=== PATIENT | male | born 1955 | race Caucasian/White ===

== ENCOUNTER 2016-08-20 15:58 | Inpatient (IN) | payer MEDICAID, OTHER ==
[2016-08-20] VITALS (7 sets, daily range): BP systolic 143–207; BP diastolic 72–100; PULSE 74–88; RESP 18–20; TEMP 98–98.3; O2SAT 96–99
[~2016-08-20] VITALS: Ht 182.9 cm; Wt 120.0 kg
--- NOTE | 2016-08-20 16:27 | PD ---
HPI Chief Complaint: Chest Pain Time Seen by Provider: 16:27 Travel History International Travel<30 days: No Contact w/Intl Traveler<30days: No History of Present Illness HPI 61-year-old male presents to the emergency department for evaluation of left- sided chest pain that started at 6 AM this morning. Patient reports a history of cardiac bypass, stent placement in February of last year, asthma, hypertension, and PE. Reports the surgery 2-1/2 weeks ago done in [place] where he lives for a cyst to his back. He states he went to [facility] to sooner now he has an open wound to his back. He went to [facility] who packed the wound. Patient states he is currently on Keflex. He also reports traveling from [place] on Saturday. Patient does report some mild shortness of breath. He denies any wheezing. Patient states the last time he felt this way was when he had the stent placed last year. He reports his last stress test and cardiac catheter was in February of last year when he had the stent placed. Patient is currently on Plavix. He also took a baby aspirin this morning. Patient had 4 sprays of nitroglycerin in the ambulance by EMS. Patient states nitroglycerin slightly relieved his chest pain, but is currently rating it 9 out of 10. PFSH Past Medical History Asthma: Yes Autoimmune Disease: No Anxiety: Yes Depression: Yes COPD: No Hypertension: Yes Myocardial Infarction: Yes Social History Alcohol Use: No Tobacco Use: Yes Substance Use: No Allergies-Medications (Allergen,Severity, Reaction): Coded Allergies: Zolpidem (Verified Allergy, Severe, 04/27/03) Ambien (Verified Allergy, Unknown, 05/17/03) Uncoded Allergies: AMBIEN (Allergy, Unknown, 04/27/03) N (Allergy, Unknown, 04/27/03) Reported Meds & Prescriptions Reported Meds & Active Scripts Active Reported Fish Oil ([place]-3 Fatty Acids) 1,000 Mg Cap 1,000 Mg PO DAILY Lisinopril 20 Mg Tab 20 Mg PO DAILY Lipitor (Atorvastatin Calcium) 40 Mg Tab 40 Mg PO HS Norvasc (Amlodipine Besylate) 10 Mg Tab 20 Mg PO DAILY Plavix (Clopidogrel Bisulfate) 75 Mg Tab 75 Mg PO DAILY Toprol XL (Metoprolol Succinate) 100 Mg Tab 100 Mg PO DAILY Klonopin (Clonazepam) 1 Mg Tab 1 Mg PO TID Review of Systems Except as stated in HPI: all other systems reviewed are Neg Physical Exam Narrative GENERAL: Well-developed well-nourished male patient, ambulatory. Afebrile. SKIN: Warm and dry. Patient has a wound to the upper mid back that measures 7 cm x 4 cm. There is very mild erythema around the edges, but no evidence of acute infection. No purulent drainage. HEAD: Normocephalic. Atraumatic. EYES: No scleral icterus. No injection or drainage. NECK: Supple, trachea midline. No JVD or lymphadenopathy. CARDIOVASCULAR: Regular rate and rhythm without murmurs, gallops, or rubs. RESPIRATORY: Breath sounds equal bilaterally. No accessory muscle use. Lungs sounds with slight expiratory wheezes noted throughout. GASTROINTESTINAL: Abdomen soft, non-tender, nondistended. MUSCULOSKELETAL: No cyanosis, or edema. BACK: Nontender without obvious deformity. No CVA tenderness. Data Data Last Documented VS Vital Signs Date Time Temp Pulse Resp B/P Pulse Ox O2 Delivery O2 Flow Rate FiO2 08/20/16 18:59 86 18 98 Room Air 08/20/16 17:15 143/76 08/20/16 16:25 98.3 Orders Electrocardiogram (08/20/16 16:26) Basic Metabolic Panel (Bmp) (08/20/16 16:26) Ckmb (Isoenzyme) Profile (08/20/16 16:26) Complete Blood Count With Diff (08/20/16 16:26) D-Dimer (08/20/16 16:26) Magnesium (Mg) (08/20/16 16:26) Prothrombin Time / Inr (Pt) (08/20/16 16:26) Act Partial Throm Time (Ptt) (08/20/16 16:26) Troponin I (08/20/16 16:26) Chest, Single Ap (08/20/16 16:26) Ecg Monitoring (08/20/16 16:26) Bilateral Bp Monitoring (08/20/16 16:26) Iv Access Insert/Monitor (08/20/16 16:26) Oximetry (08/20/16 16:26) Oxygen Administration (08/20/16 16:26) Sodium Chloride 0.9% Flush (Ns Flush) (08/20/16 16:30) Albuterol-Ipratropium Neb (Duoneb Neb) (08/20/16 16:30) Morphine Inj (Morphine Inj) (08/20/16 17:00) Ondansetron Inj (Zofran Inj) (08/20/16 17:00) Nitroglycerin 2% Oint (Nitroglycerin 2% (08/20/16 17:00) Labs Laboratory Tests Test 08/20/16 08/20/16 16:30 18:00 White Blood Count 7.2 TH/MM3 Red Blood Count 4.19 MIL/MM3 Hemoglobin 12.9 GM/DL Hematocrit 37.8 % Mean Corpuscular Volume 90.1 FL Mean Corpuscular Hemoglobin 30.8 PG Mean Corpuscular Hemoglobin 34.2 % Concent Red Cell Distribution Width 14.3 % Platelet Count 122 TH/MM3 Mean Platelet Volume 9.7 FL Neutrophils (%) (Auto) 59.8 % Lymphocytes (%) (Auto) 25.8 % Monocytes (%) (Auto) 10.0 % Eosinophils (%) (Auto) 3.7 % Basophils (%) (Auto) 0.7 % Neutrophils # (Auto) 4.3 TH/MM3 Lymphocytes # (Auto) 1.9 TH/MM3 Monocytes # (Auto) 0.7 TH/MM3 Eosinophils # (Auto) 0.3 TH/MM3 Basophils # (Auto) 0.1 TH/MM3 CBC Comment DIFF FINAL Differential Comment Sodium Level 142 MEQ/L Potassium Level 4.0 MEQ/L Chloride Level 112 MEQ/L Carbon Dioxide Level 24.5 MEQ/L Anion Gap 6 MEQ/L Blood Urea Nitrogen 28 MG/DL Creatinine 2.03 MG/DL Estimat Glomerular Filtration 34 ML/MIN Rate Random Glucose 102 MG/DL Calcium Level 8.7 MG/DL Magnesium Level 2.1 MG/DL Total Creatine Kinase 55 U/L Troponin I LESS THAN 0.02 NG/ML Prothrombin Time 10.7 SEC Prothromb Time International 1.0 RATIO Ratio Activated Partial 28.0 SEC Thromboplast Time D-Dimer Quantitative (PE/DVT) 0.35 MG/L FEU [facility] Medical Decision Making Medical Screen Exam Complete: Yes Emergency Medical Condition: Yes Medical Record Reviewed: Yes Interpretation(s) chest x-ray - CONCLUSION: No evidence of acute cardiac pulmonary disease. Differential Diagnosis STEMI versus NSTEMI versus PE versus pneumonia versus COPD exacerbation versus pneumothorax Narrative Course 61-year-old male presents to the emergency department for evaluation of chest pain that started at 6 AM this morning. Patient has a significant cardiac history as well as a history of PE. Patient has risk factors of recent travel and recent surgery as well. EKG, CBC, BMP, CK, troponin, magnesium, PTT, PT/INR , d-dimer are ordered and pending. Chest x-ray is ordered and pending. EKG shows sinus rhythm, heart rate 75, no acute ST changes. CBC shows no acute abnormalities. BMP shows elevated BUN and creatinine 28/2.03. CK is 55. Troponin less than 0.02. Magnesium is 2.1. Coags show no acute abnormalities. D-dimer is 0.35. Chest x-ray shows no evidence of acute cardiac pulmonary disease. The patient's daughter did call and spoke to the nurse who was taking care of the patient. She states the patient has a warrant out for his arrest for stealing from him. She state that he is also addicted to pain medication and will go to hospital complaining of chest pain in hopes to obtain pain medication. The [facility]'s Office would like to be called when he is discharged. Patient will be admitted to the chest pain center to rule out ACS. Patient continues to ask for pain medication. I instructed him that I would not be able to give him any further narcotics at this time. Diagnosis Primary Impression: Chest pain Qualified Code: R07.9 - Chest pain, unspecified type Admitting Information Admitting Physician Requests: Tatiana Parnell Aug 20, 2016 16:27
[2016-08-20] MEDS ORDERED: RESP: ALBUTEROL 2.5 MG/IPRATROPIUM 0.5 MG NEB (SCH) INH ONE (16:30)
[2016-08-20] MEDS ORDERED: SODIUM CHLORIDE 0.9% FLUSH 5 ML FLUSH IVF PRN ×2 (16:30→19:15)
[2016-08-20] MEDS ORDERED: MORPHINE SULFATE 4 MG/ML INJ IV PUSH ONE (17:00)
[2016-08-20] MEDS ORDERED: ONDANSETRON HCL 4 MG/2 ML VIAL IV PUSH ONE (17:00)
[2016-08-20] MEDS ORDERED: NITROGLYCERIN 2% OINT 1 GM PACKET TOPICAL ONE (17:00)
--- NOTE | 2016-08-20 17:00 | RADRPT ---
EXAM DATE/TIME: 08/20/2016 16:36 [facility] COMPARISON: No previous studies available for comparison. INDICATIONS : Chest pain MEDICAL HISTORY : Hypertension. SURGICAL HISTORY : CABG. Cyst removed from upper back 2 weeks ago bandage still on ENCOUNTER: Initial ACUITY: 1 day PAIN SCORE: 8/10 LOCATION: Bilateral chest FINDINGS: No infiltrate, effusion or pneumothorax demonstrated. Heart size within normal limits. Patient has had previous median sternotomy and CABG. CONCLUSION: No evidence of acute cardiac pulmonary disease. Antonino Sánchez MD on August 20, 2016 at 16:58 Board Certified Radiologist. This report was verified electronically.
[2016-08-20 17:19] LABS: AUTOMATED NEUTROPHIL # 4.3 TH/MM3 (1.8-7.7); BASOPHIL # 0.1 TH/MM3 (0-0.2); BASOPHIL % 0.7 % (0.0-2.0); EOSINOPHIL # 0.3 TH/MM3 (0-0.4); EOSINOPHIL % 3.7 % (0.0-4.0); HEMATOCRIT 37.8 % (39.0-51.0); HEMO FLAGS DIFF FINAL; LYMPH % 25.8 % (9.0-44.0); LYMPHOCYTE # 1.9 TH/MM3 (1.0-4.8); MEAN CELL VOLUME 90.1 FL (80.0-100.0); MEAN CORPUSCULAR HEMOGLOBIN 30.8 PG (27.0-34.0); MEAN CORPUSCULAR HGB CONC 34.2 % (32.0-36.0); NEUT % 59.8 % (16.0-70.0); PLATELET COUNT 122 TH/MM3 (150-450); RED BLOOD COUNT 4.19 MIL/MM3 (4.50-5.90); RED CELL DISTRIBUTION WIDTH 14.3 % (11.6-17.2); WHITE BLOOD COUNT 7.2 TH/MM3 (4.0-11.0)
[2016-08-20 17:32] LABS: ANION GAP 6 MEQ/L (5-15); BICARBONATE 24.5 MEQ/L (21.0-32.0); BLOOD UREA NITROGEN 28 MG/DL (7-18); CHLORIDE 112 MEQ/L (98-107); GLOMERULAR FILTRATION RATE 34 ML/MIN (>89); MAGNESIUM 2.1 MG/DL (1.5-2.5); SODIUM (NA) 142 MEQ/L (136-145)
[2016-08-20 18:13] LABS: CREATINE KINASE 55 U/L (39-308)
[2016-08-20] MEDS ORDERED: FISH1000 PO (18:46)
[2016-08-20] MEDS ORDERED: TOPR100T PO (18:46)
[2016-08-20] MEDS ORDERED: LISI-515 PO (18:46)
[2016-08-20] MEDS ORDERED: AMLO10 PO (18:46)
[2016-08-20] MEDS ORDERED: CLON1 PO (18:46)
[2016-08-20] MEDS ORDERED: PLAV75TA29 PO (18:46)
[2016-08-20] MEDS ORDERED: LIPI40TA PO (18:46)
[2016-08-20 18:56] LABS: PROTHROMBIN TIME - PATIENT 10.7 SEC (9.8-11.6)
--- NOTE | 2016-08-20 19:30 | PD ---
Data Data Last Documented VS Vital Signs Date Time Temp Pulse Resp B/P Pulse Ox O2 Delivery O2 Flow Rate FiO2 08/20/16 18:59 86 18 98 Room Air 08/20/16 17:15 143/76 08/20/16 16:25 98.3 Orders Electrocardiogram (08/20/16 16:26) Basic Metabolic Panel (Bmp) (08/20/16 16:26) Ckmb (Isoenzyme) Profile (08/20/16 16:26) Complete Blood Count With Diff (08/20/16 16:26) D-Dimer (08/20/16 16:26) Magnesium (Mg) (08/20/16 16:26) Prothrombin Time / Inr (Pt) (08/20/16 16:26) Act Partial Throm Time (Ptt) (08/20/16 16:26) Troponin I (08/20/16 16:26) Chest, Single Ap (08/20/16 16:26) Ecg Monitoring (08/20/16 16:26) Bilateral Bp Monitoring (08/20/16 16:26) Iv Access Insert/Monitor (08/20/16 16:26) Oximetry (08/20/16 16:26) Oxygen Administration (08/20/16 16:26) Sodium Chloride 0.9% Flush (Ns Flush) (08/20/16 16:30) Albuterol-Ipratropium Neb (Duoneb Neb) (08/20/16 16:30) Morphine Inj (Morphine Inj) (08/20/16 17:00) Ondansetron Inj (Zofran Inj) (08/20/16 17:00) Nitroglycerin 2% Oint (Nitroglycerin 2% (08/20/16 17:00) Admit Order (Ed Use Only) (08/20/16 19:10) Labs Laboratory Tests Test 08/20/16 08/20/16 16:30 18:00 White Blood Count 7.2 TH/MM3 Red Blood Count 4.19 MIL/MM3 Hemoglobin 12.9 GM/DL Hematocrit 37.8 % Mean Corpuscular Volume 90.1 FL Mean Corpuscular Hemoglobin 30.8 PG Mean Corpuscular Hemoglobin 34.2 % Concent Red Cell Distribution Width 14.3 % Platelet Count 122 TH/MM3 Mean Platelet Volume 9.7 FL Neutrophils (%) (Auto) 59.8 % Lymphocytes (%) (Auto) 25.8 % Monocytes (%) (Auto) 10.0 % Eosinophils (%) (Auto) 3.7 % Basophils (%) (Auto) 0.7 % Neutrophils # (Auto) 4.3 TH/MM3 Lymphocytes # (Auto) 1.9 TH/MM3 Monocytes # (Auto) 0.7 TH/MM3 Eosinophils # (Auto) 0.3 TH/MM3 Basophils # (Auto) 0.1 TH/MM3 CBC Comment DIFF FINAL Differential Comment Sodium Level 142 MEQ/L Potassium Level 4.0 MEQ/L Chloride Level 112 MEQ/L Carbon Dioxide Level 24.5 MEQ/L Anion Gap 6 MEQ/L Blood Urea Nitrogen 28 MG/DL Creatinine 2.03 MG/DL Estimat Glomerular Filtration 34 ML/MIN Rate Random Glucose 102 MG/DL Calcium Level 8.7 MG/DL Magnesium Level 2.1 MG/DL Total Creatine Kinase 55 U/L Troponin I LESS THAN 0.02 NG/ML Prothrombin Time 10.7 SEC Prothromb Time International 1.0 RATIO Ratio Activated Partial 28.0 SEC Thromboplast Time D-Dimer Quantitative (PE/DVT) 0.35 MG/L FEU [facility] Supervised Visit with JOSE: Yes Narrative Course The history, exam, and medical decision-making in the associated mid-level provider note were completed with my assistance. I reviewed and agree with the findings presented. I attest that I had a [id number] encounter with the patient on the same day, and personally performed and documented my assessment and findings in the medical record. *My assessment and Findings: 7-year-old man, history of CAD, presents with chest pain. He states feels similar to her previous CAD. There is a little bit of mixed message here, his daughter called and states that he has a warrant for stealing from her and is a drug seeker comes emergent department complaining of chest pain when he gets out of medication. He also has some wounds to his back that are apparently are from back surgery that he never followed up for, had the sutures removed at another ED, and then saw another ED and has impacted. There is no infection at the base looks a little bit necrotic. Given his history, would recommend admission to chest pain Center, serial cardiac enzymes, no opiates. Diagnosis Primary Impression: Chest pain Qualified Code: R07.9 - Chest pain, unspecified type Fredrick Hoyt MD Aug 20, 2016 19:30
[2016-08-20 20:37] LABS: CREATINE KINASE 48 U/L (39-308)
[2016-08-20] MEDS: SODIUM CHLORIDE 0.9% FLUSH 5 ML FLUSH IVF SCH (21:00)
[2016-08-20 22:57] LABS: CREATINE KINASE 44 U/L (39-308)
[2016-08-20] MEDS: NITROGLYCERIN 2% OINT 1 GM PACKET TOP SCH (23:55)
[2016-08-21] VITALS (9 sets, daily range): BP systolic 135–165; BP diastolic 64–94; PULSE 64–81; RESP 18–20; TEMP 97.4–98.2; O2SAT 93–99
[2016-08-21] MEDS: NITROGLYCERIN 2% OINT 1 GM PACKET TOP SCH ×3 (06:05→17:14)
[2016-08-21] MEDS: SODIUM CHLORIDE 0.9% FLUSH 5 ML FLUSH IVF SCH ×2 (06:05→21:00)
[2016-08-21] MEDS ORDERED: LISINOPRIL 20 MG TAB PO SCH (09:00)
--- NOTE | 2016-08-21 09:06 | EKG ---
Date Performed: 08/20/2016 Time Performed: 22:40:32 PTAGE: 61 years EKG: Sinus rhythm WITH FREQUENT VENTRICULAR PREMATURE COMPLEXES LOW QRS VOLTAGE IN PRECORDIAL LEADS ABNORMAL RHYTHM EC G Since PREVIOUS TRACING , now with PVC's PREVIOUS TRACIN08/20/2016 19.41 DOCTOR: Janice Cowan Interpretating Date/Time 08/21/2016 09:06:01
--- NOTE | 2016-08-21 09:08 | EKG ---
Date Performed: 08/20/2016 Time Performed: 19:41:09 PTAGE: 61 years EKG: Sinus rhythm LOW QRS VOLTAGE IN PRECORDIAL LEADS INCOMPLETE RIGHT BUNDLE BRANCH BLOCK INFERIOR MYOCARDIAL INFARCT ION ANTEROSEPTAL MYOCARDIAL INFARCTION ABNORMAL ECG Since PREVIOUS TRACING , no significant change noted PREVIOUS TRACIN08/20/2016 16.05 DOCTOR: Janice Cowan Interpretating Date/Time 08/21/2016 09:06:57
--- NOTE | 2016-08-21 09:09 | EKG ---
Date Performed: 08/20/2016 Time Performed: 16:05:42 PTAGE: 61 years EKG: Sinus rhythm INCOMPLETE RIGHT BUNDLE BRANCH BLOCK PROBABLE INFERIOR MYOCARDIAL INFARCTION ABNORMAL ECG Since PREVIOUS TRACING , no significant change noted PREVIOUS TRACIN05/18/2003 07.25 DOCTOR: Janice Cowan Interpretating Date/Time 08/21/2016 09:07:52
[2016-08-21] MEDS ORDERED: REGADENOSON INJ 0.4 MG/5 ML SYR ONE (10:00)
[2016-08-21] MEDS: CLOPIDOGREL 75 MG TAB PO SCH (11:02)
[2016-08-21] MEDS: ACETAMINOPHEN/HYDROcodone 325 MG/7.5 MG TAB PO PRN ×2 (11:02→17:00)
[2016-08-21] MEDS: METOPROLOL SUCCINATE 50 MG EXTENDED RELEASE TAB PO SCH (11:02)
[2016-08-21] MEDS: clonazePAM 1 MG TAB PO SCH ×3 (11:02→17:00)
--- NOTE | 2016-08-21 11:06 | MH ---
cc: MIRTHA HALEY MD DATE OF ADMISSION: 08/20/2016 DATE OF 1955 CHIEF COMPLAINT Back wound and chest pain. HISTORY OF PRESENT ILLNESS This is 61-year-old male with history of CAD with a bypass history as well as multiple stents to his LAD who presents with his primary complaint of pain in his back after having a sebaceous cyst removed from his back over 2-1/2 weeks ago in [place]. He states he had sutures removed in [place] several days ago and the wound opened up. He went to a different hospital a couple days ago and had packing put in. He presented to the ED yesterday afternoon for a lot of drainage from the site. He states he is soaking the dressing. He states it has been foul-smelling. It has been bloody, brown, green and yellow drainage from the wound. He also complains of chest discomfort. He states he had an episode yesterday morning around 8 o'clock in the morning that he describes as an elephant sitting on his chest and is still there. It got a little worse when he was at the [facility] yesterday with his son. It is on the left side of his chest. He states that it feels similar to when he had stenting and bypass in the past. He had no shortness breath, nausea, diaphoresis with his symptoms. He states that he has placed on Keflex for the wound at one of the ER visits. He states he has not taken it. He states he is compliant with his cardiac medications. PAST MEDICAL HISTORY 1. CAD with history of CABG and multiple stenting. 2. Dehiscence of excisional site of his back. 3. Hypertension. 4. Hyperlipidemia. 5. Carotid artery stenosis with a right enterectomy. 6. CVA. FAMILY HISTORY Positive for CAD. SOCIAL HISTORY The patient quit smoking about 5 years ago but prior to that he smokes about 1/2-pack of cigarettes for 40 years. He denies alcohol or illicit drugs. SURGICAL HISTORY 1. He has had multiple heart catheterizations and he states he had a total of 10 stents. His last stenting was in February of 2016. 2. He also had CABG. 3. He states he had a sebaceous cyst excised 2-1/2 weeks ago in [place]. It has since dehisced. ALLERGIES AMBIEN. CURRENT MEDICATIONS 1. Keflex. 2. Lisinopril. 3. Klonopin. 4. Metoprolol succinate. 5. Atorvastatin. 6. Plavix. 7. [place] 3 fatty acids. 8. He also is on amlodipine 20 mg daily which is above the maximum dose of 10 mg. REVIEW OF SYSTEMS General: Denies fever or chills. Denies recent illness. HEENT: Denies headache, earache, sore throat difficulty swallowing. Cardiovascular: Describes the discomfort as mentioned above. Denies diaphoresis. Denies sensation of heart beating rapidly or irregularly. No syncope. Respiratory: Denies shortness of breath or inspirational chest discomfort. Denies coughing, wheezing or hemoptysis. GI: Denies nausea, vomiting, diarrhea, abdominal pain or blood in the stool. Musculoskeletal: Denies joint pain or edema. Denies calf pain or edema. He does complain of back pain where the wound has dehisced. Neurovascular: Denies headache or dizziness. Endocrine: Denies polyuria or polydipsia. Hematologic: Denies bruising. Skin: Denies rash or itching. He does complain of the two wounds on his back from prior excision of the sebaceous cyst. PHYSICAL EXAMINATION Vital Signs: In emergency department initially included a blood pressure of 207/175, respiratory rate 18, pulse oximetry 96% on room air and he was afebrile. Most recent vital signs include a blood pressure of 165/89, heart rate 70, respiration 20, pulse oximetry 98%on room air and he is afebrile. General: The patient is seen in the examination room in no apparent stress. He is very pleasant. He speaks in clear and complete sentences. Please note also that a transit authority police officer is also at the bedside as the patient is in custody. HEENT: Head is atraumatic, normocephalic. Neck: Supple without lymphadenopathy. Trachea is midline. No JVD. There is a right carotid bruit. Cardiovascular: Regular rate and rhythm, without murmur, rub or gallop. Respiratory: Lungs clear to auscultation bilaterally. No wheezing, rales or rhonchi. No reproducible chest wall discomfort. No use of accessory muscles. GI: Abdomen is nontender, nondistended. Bowel sounds are normal. No guarding or rebound. No obvious pulsatile mass or bruit. No CVA tenderness. Good strong femoral pulses bilaterally. Musculoskeletal: Patient moving upper and lower extremities freely. No joint tenderness or edema. No calf tenderness or edema. No Homans' sign. Strong pulses in upper and lower extremities. Neurovascular: Patient alert and oriented. Cranial nerves II through XII grossly intact. There are no focal deficits and speech is clear. Skin: No rashes. Turgor is normal. There are two wounds to his back. One is transverse to his back and really did not show any signs of cellulitis. Then he has a more midline and vertical wound that has dehisced, approximately 7-8 cm high x 3-4 cm across. The wound does open and muscle is expose. There is erythema on the margins of the wound. There also appears to some necrosis on the inner aspect of the open wound. There is a lot of serosanguineous drainage on the dressing. LABORATORY DATA CBC is essentially remarkable. Coagulation studies unremarkable including a D-dimer that is normal at 0.35. Basic metabolic panel has a creatinine elevated at 2.03, GFR is decreased at 34, BUN elevated at 20. Serial cardiac enzymes normal x 3. SINGLE VIEW CHEST X-RAY Read by radiologist as no evidence of acute cardiopulmonary disease. There is evidence of prior sternotomy. EKGs Sinus rhythm without significant ST segment depression or elevation. ASSESSMENT 1. Chest pain: The patient has history of CAD, has had CABG and multiple stents. He has had serial cardiac enzymes and EKGs for ruling out purposes. He has been seen by Dr. Haley of Cardiology in the Chest [facility] Center and we will get a Lexiscan. If it is unremarkable, we will be signing off at that time. If abnormal, the patient will need a consultation to section leader and machine setter mold cutting machine operator. 2. History of CAD: The patient will have this reassessed with stress testing. He has ruled out with serial cardiac enzymes and EKGs. 3. Renal insufficiency: The patient denies having history of this. The patient will be given IV hydration and will repeat basic metabolic panel in the morning. 4. Cellulitis: The patient's wound has dehiscence. It is draining. The patient will need admission for this. I have spoken with Dr. Green who has graciously agreed to accept the patient. We will defer antibiotic choice to Dr. Green and his physician, Pankaj Calle. 5. Hypertension: We will decrease his amlodipine to 10 mg. He will otherwise resume his medications. 6. Hyperlipidemia: Continue current medication. The patient is stable at this time. He is agreeable to this plan. Dictated by: Jamir Pryor PA-C Breann Rojas/JENIFFER /10:12 AM /11:06 AM
--- NOTE | 2016-08-21 11:14 | RADRPT ---
EXAM DATE/TIME: 08/21/2016 09:29 [facility] COMPARISON: No previous studies available for comparison. INDICATIONS : Left sided chest pain for 1 day. CABG, cardiac stents placed, asthma and cardiac cath. Angina. Myoca rdial infarction. DOSE: 26.4 mCi Tc99m Myoview at stress. 8.5 mCi Tc99m Myoview at rest. 0.4 mg Lexiscan STRESS SYMPTOMS: Dyspnea. EJECTION FRACTION: 53% MEDICAL HISTORY : Hypertension. SURGICAL HISTORY : Coronary artery stent. CABG ENCOUNTER: Initial ACUITY: 1 day PAIN SCALE: 2/10 LOCATION: Left chest TECHNIQUE: The patient underwent pharmacologic stress with infusion of prescribed dose. Continuous ECG tracing was monitored during stress. Gated SPECT imaging was performed after stress and conventional SPECT i maging was performed at rest. The examination was performed on a SPECT/CT scanner, both attenuation and non-corrected datasets were reviewed. FINDINGS: DISTRIBUTION: The maximum perfused segment at stress is in the anterior wall. PERFUSION STUDY: There is moderately diminished relative perfusion involving inferior wall and cardiac apex without de finite evidence of redistribution GATED STUDY: There is intact wall motion and thickening without hypokinetic or dyskinetic segments. CONCLUSION: Small sized moderate severity inferior and apical perfusion abnormality without evidence of redistrib ution. RISK CATEGORY: Low (<1% Annual Mortality Rate) Antonino Guerra MD on August 21, 2016 at 11:09 Board Certified Radiologist. This report was verified electronically.
[2016-08-21] MEDS ORDERED: cloNIDine HCL 0.1 MG TAB PO PRN (12:00)
--- NOTE | 2016-08-21 12:15 | HHI.PR ---
Subjective Remarks The patient was admitted to [facility] for chest pain, stress test performed, nonischemic, cardiology has signed off. The patient's care was transferred to the hospitalist service because he has a large wound on his back after a sebaceous cyst was removed. The patient had sebaceous cyst removed from his back a few weeks ago by general surgeon in [place]. He states that he moved down from [place] to be closer to his daughter, and has no plans to return as of yet. He states that a few days ago and the wound opened up, went to an ED where packing was placed and he was given Keflex. He denies any fevers or chills. Of note his creatinine was noted to be elevated, denies any prior history of renal disease to his knowledge. He's been tolerating diet and would like to eat now after his stress test. He denies any nausea, vomiting, or diarrhea. Objective Vitals Vital Signs Date Time Temp Pulse Resp B/P Pulse Ox O2 Delivery O2 Flow Rate FiO2 08/21/16 10:57 95 21 08/21/16 08:33 97.8 78 20 165/89 95 08/21/16 03:46 98.0 81 20 144/65 95 08/21/16 00:12 97.6 80 20 147/94 99 08/20/16 23:30 75 08/20/16 21:05 98.0 80 20 144/72 99 08/20/16 20:00 97 08/20/16 18:59 86 18 98 Room Air 08/20/16 17:15 88 18 143/76 96 Room Air 08/20/16 16:40 74 207/100 194/87 08/20/16 16:29 18 97 Room Air 08/20/16 16:29 73 18 96 Room Air 08/20/16 16:29 96 Room Air 08/20/16 16:29 75 18 207/100 96 Room Air 08/20/16 16:25 98.3 75 18 207/100 96 I/O 08/20/16 08/20/16 08/20/16 08/21/16 08/21/16 08/21/16 06:59 14:59 22:59 06:59 14:59 22:59 Output Total 1000 ml Balance -1000 ml Output Urine Total 1000 ml Result Diagram: 08/20/16 1630 08/20/16 1630 Imaging Last Impressions Chest X-Ray 08/20/16 1626 Signed Impressions: Service Date/Time: Saturday, August 20, 2016 16:36 - CONCLUSION: No evidence of acute cardiac pulmonary disease. Antonino Sánchez MD Objective Remarks GENERAL: Well-developed well-nourished. In no acute distress. SKIN: Warm and dry. Mid back with ~4cm open wound with exposed muscle; no surrounding erythema or drainage noted. HEENT: Normocephalic. Pupils equal and round. Mucous membranes pink and moist. CARDIOVASCULAR: Regular rate and rhythm. No murmur appreciated. RESPIRATORY: No accessory muscle use. Clear to auscultation. Breath sounds equal bilaterally. GASTROINTESTINAL: Abdomen soft, non-tender, nondistended. Bowel sounds x4. MUSCULOSKELETAL: No obvious deformities. No clubbing or cyanosis. No edema. NEUROLOGICAL: Awake and alert. No focal neurological deficits. Moves upper and lower extremities spontaneously. Normal speech. PSYCHIATRIC: Appropriate mood and affect; insight and judgment normal. A/P Problem List: (1) Chest pain ICD Code: R07.9 Status: Acute (2) Open back wound ICD Code: S21.209A Status: Acute Assessment and Plan 61-year-old male with past medical history of CAD, HTN, HLD, CVA, and recent sebaceous cyst removal who presented to the ED for chest pain Chest pain with history of CAD: Evaluated by cardiology and the chest pain center and stress test was performed which showed no acute ischemia. Discussed with [facility], cleared from cardiology perspective. Continue Plavix, statin, beta rojas. Back wound dehiscence s/p recent sebaceous cyst removal: Afebrile with no leukocytosis. Does not appear to be acutely infected at this time. Possible area of necrosis in the wound. Consult wound care physician for recommendations , may need debridement and/or wound VAC. [place] as needed for now for pain. Acute kidney injury: Unclear etiology, unknown baseline. Creatinine 2.03, previously 1.1 on 05/18/03. Start IVF and follow-up BMP. Hypertension: Hold lisinopril for now with JULIO. Amlodipine started in [facility]. Clonidine as needed. DVT prophylaxis: SCDs Discharge Planning Disposition pending clinical course. Currently with law-enforcement bedside as the patient is with a warrant, and will go to intermediate at [place]. Problem Qualifiers (1) Chest pain: Qualified Code: R07.9 - Chest pain, unspecified type (2) Open back wound: Qualified Code: S21.209A - Open back wound, unspecified laterality, initial encounter Pankaj Calle Aug 21, 2016 12:14
[2016-08-21] MEDS: SODIUM CHLOR 0.9% 1000 ML INJ 1,000 ML IV SCH ×2 (12:31→23:20)
--- NOTE | 2016-08-21 17:01 | TR ---
Date Performed: 08/21/2016 Time Performed: 10:01:37 DOCTOR: Janice Cowan DRUG LIST: CLINICAL HISTORY: ANGINA REASON FOR TEST: Angina REASON FOR ENDING: OBSERVATION: CONCLUSION: Lexiscan stress test was performed under standard four minute protocol. Radionuclid e was injected one minute prior to ending the test. No electrocardiographic abormalities were present to suggest ischemia. Nuclear imaging and interpretation are pending. COMMENTS:
[2016-08-21] MEDS ORDERED: KETOROLAC TROMETHAMINE 30 MG/ML (IVP) VIAL IV PUSH PRN (17:15)
[2016-08-21] MEDS ORDERED: ONDANSETRON HCL 4 MG/2 ML VIAL IV PRN (21:15)
[2016-08-21] MEDS ORDERED: DOCUSATE SODIUM 100 MG CAP PO PRN (21:15)
[2016-08-21] MEDS ORDERED: DOCUSATE SODIUM 50 MG/SENNA 8.6 MG TAB PO PRN (21:15)
[2016-08-21] MEDS ORDERED: ACETAMINOPHEN 325 MG TAB PO PRN (21:15)
[2016-08-21] MEDS ORDERED: CALCIUM CARBONATE 500 MG CHEWABLE TAB CHEW PRN (21:15)
[2016-08-21] MEDS: ATORVASTATIN 40 MG TAB PO SCH (22:10)
[2016-08-22] VITALS (8 sets, daily range): BP systolic 132–167; BP diastolic 67–89; PULSE 55–72; RESP 20; TEMP 96.2–98.3; O2SAT 94–96
[2016-08-22 02:15] LABS: BLOOD, URINE NEG (NEG); COMMENT (UR) CULT NOT INDICATED; CULTURE IF INDICATED CULT NOT INDICATED; GLUCOSE,URINE NEG (NEG); KETONE, URINE NEG (NEG); MUCUS URINE FEW /lpf (OCC); NITRITE,URINE NEG (NEG); URINE COLOR YELLOW (YELLW/STRAW)
[2016-08-22] MEDS: NITROGLYCERIN 2% OINT 1 GM PACKET TOP SCH ×4 (06:00→18:00)
[2016-08-22 07:05] LABS: AUTOMATED NEUTROPHIL # 5.2 TH/MM3 (1.8-7.7); BASOPHIL % 0.4 % (0.0-2.0); EOSINOPHIL # 0.2 TH/MM3 (0-0.4); EOSINOPHIL % 2.6 % (0.0-4.0); HEMATOCRIT 38.8 % (39.0-51.0); HEMO FLAGS DIFF FINAL; LYMPH % 16.2 % (9.0-44.0); LYMPHOCYTE # 1.2 TH/MM3 (1.0-4.8); MEAN CORPUSCULAR HGB CONC 34.1 % (32.0-36.0); MONO % 8.6 % (0.0-8.0); NEUT % 72.2 % (16.0-70.0); PLATELET COUNT 119 TH/MM3 (150-450); RED BLOOD COUNT 4.27 MIL/MM3 (4.50-5.90); RED CELL DISTRIBUTION WIDTH 14.2 % (11.6-17.2); WHITE BLOOD COUNT 7.2 TH/MM3 (4.0-11.0)
[2016-08-22 07:12] LABS: BICARBONATE 24.6 MEQ/L (21.0-32.0); POTASSIUM 4.3 MEQ/L (3.5-5.1)
[2016-08-22] MEDS: SODIUM CHLORIDE 0.9% FLUSH 5 ML FLUSH IVF SCH ×2 (09:00→21:00)
[2016-08-22] MEDS: clonazePAM 1 MG TAB PO SCH ×3 (09:24→18:00)
[2016-08-22] MEDS: CLOPIDOGREL 75 MG TAB PO SCH (09:25)
[2016-08-22] MEDS: METOPROLOL SUCCINATE 50 MG EXTENDED RELEASE TAB PO SCH (09:26)
[2016-08-22] MEDS: ACETAMINOPHEN/HYDROcodone 325 MG/7.5 MG TAB PO PRN (09:31)
--- NOTE | 2016-08-22 10:50 | HHI.PR ---
Subjective Remarks Follow up for back wound. The patient reports continued pain at the site of the back wound, with drainage on dressing. Denies fevers or chills. He reports the packing was initially placed at [facility] on Saturday 08/19, he states he took 2 days of po Keflex before presenting [facility]. Denies any further chest pains or shortness of breath. Objective Vitals Vital Signs Date Time Temp Pulse Resp B/P Pulse Ox O2 Delivery O2 Flow Rate FiO2 08/22/16 08:00 96.9 62 20 167/88 94 08/22/16 04:00 64 08/22/16 03:51 98.0 65 20 156/74 95 08/22/16 00:00 55 08/21/16 23:44 98.0 64 20 145/64 95 08/21/16 20:00 67 08/21/16 19:48 98.2 67 20 145/75 96 08/21/16 18:00 14 08/21/16 15:46 97.8 70 18 135/74 95 08/21/16 12:15 97.4 70 18 156/72 93 08/21/16 10:57 95 21 I/O 08/21/16 08/21/16 08/21/16 08/22/16 08/22/16 08/22/16 07:00 15:00 23:00 07:00 15:00 23:00 Intake Total 911 ml Output Total 1000 ml 800 ml 1200 ml Balance -1000 ml -800 ml -289 ml Intake IV Total 911 ml Output Urine Total 1000 ml 800 ml 1200 ml Result Diagram: 08/22/16 0625 08/22/16 0625 Imaging Last Impressions Myocardial Perfusion Scan Nuc Med 08/21/16 0000 Signed Impressions: Service Date/Time: Sunday, August 21, 2016 09:29 - CONCLUSION: Small sized moderate severity inferior and apical perfusion abnormality without evidence of redistribution. RISK CATEGORY: Low (<1%% Annual Mortality Rate) Antonino Guerra MD Chest X-Ray 08/20/16 1626 Signed Impressions: Service Date/Time: Saturday, August 20, 2016 16:36 - CONCLUSION: No evidence of acute cardiac pulmonary disease. Antonino Sánchez MD Objective Remarks GENERAL: Well-nourished, well-developed male patient in [facility]. SKIN: Warm and dry. Mid-upper back with approx. 4cm open deep wound, necrotic, wet to dry dressing in place. HEAD: Normocephalic. Atraumatic. EYES: Pupils equal and round. No scleral icterus. No injection or drainage. ENT: No nasal bleeding or discharge. Mucous membranes pink and moist. NECK: Supple. Trachea midline. CARDIOVASCULAR: Regular rate and rhythm. S1, S2 noted. No murmur appreciated. RESPIRATORY: No accessory muscle use. Clear to auscultation. Breath sounds equal bilaterally. GASTROINTESTINAL: Abdomen soft, non-tender, nondistended. Normoactive bowel sounds x4. MUSCULOSKELETAL: No obvious deformities. Extremities without clubbing, cyanosis , or edema. NEUROLOGICAL: Awake and alert. No obvious cranial nerve deficits. Motor grossly within normal limits. Moves all extremities spontaneously. Normal speech. PSYCHIATRIC: Appropriate mood and affect; insight and judgment normal. Medications and IVs Current Medications Medications (Trade) Dose Ordered Sig/Stephanie Route Start Time Stop Time Status Last Admin (NS Flush) 2 ml UNSCH PRN IVF 08/20/16 19:15 (NS Flush) 2 ml BID IVF 08/20/16 21:00 08/21/16 06:05 (Nitroglycerin 2% Oint) 1 inch Q6HR TOP 08/21/16 00:00 08/21/16 12:29 (Lipitor) 40 mg HS PO 08/21/16 21:00 08/21/16 22:10 (KlonoPIN) 1 mg TID PO 08/21/16 09:00 08/22/16 09:24 (Plavix) 75 mg DAILY PO 08/21/16 09:00 08/22/16 09:25 (Prinivil) 20 mg DAILY PO 08/21/16 09:00 Hold 08/21/16 11:02 Metoprolol Succinate 100 mg 100 mg DAILY PO 08/21/16 09:00 08/22/16 09:26 (NS 1000 ml Inj) 1,000 ml @ 100 mls/hr Q10H IV 08/21/16 10:00 08/21/16 23:20 (Norvasc) 10 mg DAILY PO 08/21/16 10:00 08/22/16 09:26 ([place] 7.5-325 Mg) 1 tab Q6H PRN PO 08/21/16 09:45 08/22/16 09:31 (Catapres) 0.1 mg Q6H PRN PO 08/21/16 12:00 (Tylenol) 650 mg Q4H PRN PO 08/21/16 21:15 (Zofran Inj) 4 mg Q6H PRN IV 08/21/16 21:15 (Colace) 100 mg BID PRN PO 08/21/16 21:15 (Meredith-Colace) 1 tab BID PRN PO 08/21/16 21:15 Calcium Carbonate 1000 mg 1,000 mg TID PRN CHEW 08/21/16 21:15 Piperacillin Sod/ Tazobactam Sod 50 ml @ 100 mls/hr Q6H IV 08/22/16 11:00 (Cleocin Inj/NS Inj) 104 ml @ 208 mls/hr Q6H IV 08/22/16 12:00 Urinary Catheter: No Vascular Central Line Catheter: No A/P Problem List: (1) Chest pain ICD Code: R07.9 Status: Acute (2) Open back wound ICD Code: S21.209A Status: Acute Assessment and Plan 61-year-old male with past medical history of CAD, HTN, HLD, CVA, and recent sebaceous cyst removal who presented to the ED for chest pain Chest pain with history of CAD: Evaluated by cardiology and the chest pain center and stress test was performed which showed no acute ischemia. Cleared from cardiology perspective. Continue Plavix, statin, beta rojas. Back wound dehiscence/necrosis s/p recent sebaceous cyst removal: Afebrile, no leukocytosis, however has foul smelling yellow drainage with necrosis and some surrounding erythema. Obtain wound culture. Start IV Clinda and IV Zosyn. Consult wound care physician, may need debridement and/or wound VAC. Discussed with metal bed assembler, needs MD wilkerson and likely further intervention, calcium alginate dressing in place now. [place] prn pain and IV morphine prn breakthrough. Acute kidney injury: Unclear etiology, unknown baseline. Creatinine 2.03, previously 1.1 on 05/18/03. Started IVF and follow-up BMP, slowly improving. Consider renal U/S if does not continue to improve. Hypertension: Not well controlled. Holding lisinopril for now with JULIO. Amlodipine started in [facility]. Clonidine as needed. Added hydralazine 25mg q8h. Continue to monitor BP, adjust antihypertensives as needed. DVT prophylaxis: SCDs Written by Felicia Portillo, acting as scribe for Dr. Duran on 08/22/16 at 09:10. The documentation accurately reflects the work performed [id number] by me on at 0910 Discharge Planning Disposition pending clinical course and wound consult. Currently with law-enforcement at bedside as the patient is with a warrant, and will go to long term at [place]. Discussed with utilization review, will admit to inpatient. Discussed with [facility] Hospitalists, will transfer care to them. Problem Qualifiers (1) Chest pain: Qualified Code: R07.9 - Chest pain, unspecified type (2) Open back wound: Qualified Code: S21.209A - Open back wound, unspecified laterality, initial encounter Felicia Portillo PA-C Aug 22, 2016 10:50 Colt Duran MD Aug 22, 2016 22:20
[2016-08-22] MEDS: PIPERACIL-TAZO 3.375 GM PREMIX 50 ML IV SCH ×3 (12:34→22:42)
[2016-08-22] MEDS: CLINDAMYCIN INJ 600 MG in SODIUM CHLORIDE 0.9% INJ 100 ML IV SCH ×2 (13:24→18:00)
[2016-08-22] MEDS: SODIUM CHLOR 0.9% 1000 ML INJ 1,000 ML IV SCH ×2 (13:25→16:00)
[2016-08-22] MEDS ORDERED: MORPHINE SULFATE 4 MG/ML INJ IV PRN (14:30)
[2016-08-22] MEDS ORDERED: ACETAMINOPHEN/HYDROcodone 325 MG/5 MG TAB PO PRN (14:30)
[2016-08-22] MEDS: ACETAMINOPHEN/HYDROcodone 325 MG/10 MG TAB PO PRN ×2 (15:45→22:48)
[2016-08-22] MEDS: hydrALAZINE HCL 25 MG TAB PO SCH ×2 (15:45→22:40)
[2016-08-22] MEDS: ATORVASTATIN 40 MG TAB PO SCH (22:40)
[2016-08-23] VITALS (8 sets, daily range): BP systolic 117–151; BP diastolic 61–81; PULSE 58–103; RESP 18–20; TEMP 97.6–98.4; O2SAT 94–96
[2016-08-23] MEDS: NITROGLYCERIN 2% OINT 1 GM PACKET TOP SCH ×4 (01:06→18:00)
[2016-08-23] MEDS: CLINDAMYCIN INJ 600 MG in SODIUM CHLORIDE 0.9% INJ 100 ML IV SCH ×4 (01:06→18:56)
[2016-08-23] MEDS: PIPERACIL-TAZO 3.375 GM PREMIX 50 ML IV SCH ×4 (05:23→22:29)
[2016-08-23] MEDS: SODIUM CHLOR 0.9% 1000 ML INJ 1,000 ML IV SCH ×3 (05:23→22:00)
[2016-08-23] MEDS: hydrALAZINE HCL 25 MG TAB PO SCH (06:38)
[2016-08-23] MEDS: METOPROLOL SUCCINATE 50 MG EXTENDED RELEASE TAB PO SCH (09:00)
[2016-08-23] MEDS: CLOPIDOGREL 75 MG TAB PO SCH (09:00)
[2016-08-23] MEDS: clonazePAM 1 MG TAB PO SCH ×3 (09:01→18:03)
[2016-08-23] MEDS: SODIUM CHLORIDE 0.9% FLUSH 5 ML FLUSH IVF SCH ×2 (09:01→21:00)
[2016-08-23] MEDS: ACETAMINOPHEN/HYDROcodone 325 MG/10 MG TAB PO PRN (09:01)
--- NOTE | 2016-08-23 09:03 | HHI.PR ---
Subjective History of Present Illness Originally admitted for chest pain, cleared for any ischemia. Follow up for back wound care and plan of care. Subjective Remarks no sob appetite good no chest pain wound care followup, dehiscence on upper lt. side of back. Positive for yellow/ bloody serous drainage denies fever or chills positive for pain at wound site. (Adali Conklin) Review of Systems Constitutional Constitutional Remarks 10 pt. review assessed, see notes, otherwise negative (Adali Conklin) Pulmonary Respiratory: Wheezing Pulmonary Remarks mild wheezing (Adali Conklin) Musculoskeletal MS: Weakness (Adali Conklin) Integumentary Skin: Wounds Skin Remarks lt upper back, incision open, mild yellow, bloody serous drainage. (Adali Conklin) Psychiatric Psychiatric: Normal Mood (Adali Conklin) Vitals/Results Intake & Output 08/22/16 08/22/16 08/23/16 14:59 22:59 06:59 Intake Total 1850 ml 240 ml Output Total 1200 ml 900 ml Balance 650 ml -660 ml Intake Oral 900 ml 240 ml IV Total 950 ml Output Urine Total 1200 ml 900 ml Vital Signs Vital Signs Date Time Temp Pulse Resp B/P Pulse Ox O2 Delivery O2 Flow Rate FiO2 08/23/16 04:02 97.6 62 20 117/61 95 08/23/16 00:08 98.4 58 20 137/63 95 08/22/16 23:00 61 08/22/16 20:04 98.3 72 20 132/67 95 08/22/16 16:45 20 08/22/16 16:00 96.2 65 20 157/77 96 08/22/16 12:00 96.4 62 20 162/89 96 08/22/16 10:31 20 (Adali Conklin) CBC/BMP: 08/22/16 0625 08/22/16 0625 Microbiology Microbiology 08/22/16 Gram Stain - Final, Resulted 08/22/16 Wound Culture, Resulted Pending (Adali Conklin) Physical Exam General General Appearance: Obese (Adali Conklin) Eyes Eye Exam: Pupils Equal, Pupils Reactive (Katerin,Adali M. CINDER PIT WORKER) Ears & Nose Ears & Nose Exam: Nasal Mucosa [place], Septum Midline (PonyAdali M. CINDER PIT WORKER) Neck Neck Exam: Neck Supple (PonyAdali M. CINDER PIT WORKER) Pulmonary Resp Exam: Diminished Breath Sounds Resp Remarks mild wheezing (KaterinAdali M. CINDER PIT WORKER) Cardiology CV Exam: Murmur CV Remarks distant (Pony,Adali M. CINDER PIT WORKER) Gastrointestinal/Abdomen GI Remarks obese (KaterinAdali M. CINDER PIT WORKER) Musculoskeletal MS Exam: Normal Tone, Good Strength (KaterinAdali M. CINDER PIT WORKER) Integumentary Skin Exam: Clear, Warm, Dry (Pony,Adali M. CINDER PIT WORKER) Extremeties Extremities Exam: Trace Edema, Moderate Edema (Katerin,Adali M. CINDER PIT WORKER) Neurologic Neuro Exam: Alert, Awake, Oriented, Speech Clear, Moving All Extremities, [place]ougar [place] Equal (KaterinAdali M. CINDER PIT WORKER) Psychiatric Psych Exam: Appropriate Responses (PonyAdali M. CINDER PIT WORKER) VTE Prophylaxis VTE Remarks plavix (PonyAdali M. CINDER PIT WORKER) PUD Prophylasis PUD Prophylaxis: Protonix (Katerin,Adali M. CINDER PIT WORKER) Assessment/Plan Problem List: (1) Chest pain (2) Open back wound (3) COPD (chronic obstructive pulmonary disease) (4) Hypertension (5) Acute kidney injury Assessment/Plan 61-year-old male with past medical history of CAD, HTN, HLD, CVA, and recent sebaceous cyst removal who presented to the ED for chest pain. Chest pain with history of CAD: Evaluated by cardiology and the chest pain center and stress test was performed which showed no acute ischemia. Cleared from cardiology perspective. Continue Plavix, statin, beta rojas. Back wound dehiscence/necrosis s/p recent sebaceous cyst removal: Afebrile, no leukocytosis, however has foul smelling yellow drainage with necrosis and some surrounding erythema. wound culture final, negative . Continue IV Clinda and IV Zosyn for now. wound care physician consulted, may need debridement and/or wound VAC. Discussed with certified physician assistant, needs MD wilkerson and likely further intervention, calcium alginate dressing in place now. [place] prn pain and IV morphine prn breakthrough. Explained to pt. Acute kidney injury: Unclear etiology, unknown baseline. Creatinine 2.03, previously 1.1 on 05/18/03. BUN 28. Started IVF and follow-up BMP, slowly improving. Consider renal U/S if does not continue to improve. COPD with mild wheezing and dimished sounds. Duonebs begun. Added Protonix for PUD prophylaxis Hypertension: Not well controlled. Holding lisinopril for now with JULIO. Amlodipine started in [facility]. Clonidine as needed. Added hydralazine 25mg q8h. Continue to monitor BP, adjust antihypertensives as needed. DVT prophylaxis: SCDs Discussed Condition Comment Sheyla MCNEILL D/W Dr. Toledo D/W nurse, pain management (Adali Conklin) Assessment/Plan Pt is seen and examined as above Chart reviewed Discussed with patient Labs and medications and radiological data reviewed Discussed with CINDER PIT WORKER Plan for plastic surgical consult Discussed with RN (Karena Toledo MD) Problem Qualifiers (1) Chest pain: Qualified Code: R07.9 - Chest pain, unspecified type (2) Open back wound: Qualified Code: S21.209A - Open back wound, unspecified laterality, initial encounter (3) COPD (chronic obstructive pulmonary disease): Qualified Code: J44.9 - Chronic obstructive pulmonary disease, unspecified COPD type (4) Hypertension: Qualified Code: I10 - Essential hypertension Adali Conklin Aug 23, 2016 09:03 Karena Toledo MD Aug 23, 2016 11:41
[2016-08-23 09:33] LABS: AUTOMATED NEUTROPHIL # 6.3 TH/MM3 (1.8-7.7); BASOPHIL # 0.1 TH/MM3 (0-0.2); BASOPHIL % 0.6 % (0.0-2.0); EOSINOPHIL # 0.2 TH/MM3 (0-0.4); HEMATOCRIT 38.3 % (39.0-51.0); HEMO FLAGS DIFF FINAL; LYMPH % 14.2 % (9.0-44.0); LYMPHOCYTE # 1.2 TH/MM3 (1.0-4.8); MEAN CELL VOLUME 89.8 FL (80.0-100.0); MEAN CORPUSCULAR HEMOGLOBIN 30.9 PG (27.0-34.0); MEAN CORPUSCULAR HGB CONC 34.4 % (32.0-36.0); MONO % 7.9 % (0.0-8.0); NEUT % 75.3 % (16.0-70.0); PLATELET COUNT 124 TH/MM3 (150-450); RED BLOOD COUNT 4.27 MIL/MM3 (4.50-5.90); RED CELL DISTRIBUTION WIDTH 14.1 % (11.6-17.2); WHITE BLOOD COUNT 8.3 TH/MM3 (4.0-11.0)
[2016-08-23 09:55] LABS: BICARBONATE 24.6 MEQ/L (21.0-32.0); POTASSIUM 4.4 MEQ/L (3.5-5.1)
[2016-08-23] MEDS: PANTOPRAZOLE SOD 20 MG DELAYED RELEASE TAB PO SCH (11:19)
[2016-08-23] MEDS: RESP: ALBUTEROL 2.5 MG/IPRATROPIUM 0.5 MG NEB (SCH) NEB ×3 (13:00→23:11)
[2016-08-23] MEDS: hydrALAZINE HCL 50 MG TAB PO SCH ×2 (13:38→21:59)
[2016-08-23] MEDS: oxyCODONE/ACETAMINOPHEN 10 MG/325 MG TAB PO PRN ×2 (13:38→18:03)
[2016-08-23] MEDS: ATORVASTATIN 40 MG TAB PO SCH (21:59)
--- NOTE | 2016-08-23 23:56 | MB ---
cc: ONIEL COOPER M.D. DATE OF CONSULTATION 08/23/16 REASON FOR CONSULTATION Back wound. HISTORY OF PRESENT ILLNESS The patient is a 61-year-old male that we have been asked to see as he had sutures removed a few days ago in [place] and had back wound dehisce. The patient had previous removal of sebaceous cyst 2 weeks ago according to the patient. The patient has a dressing in place in the right upper back wound. PAST MEDICAL HISTORY The patient was seen in the emergency department on August 20, 2016 for left-sided chest pain with workup. He had stent placement in February of 2016 and has medical history with hypertension, asthma and a PE. Past medical history significant for asthma, anxiety, depression, hypertension, history of PR. SOCIAL HISTORY He does not drink. He smokes. No substance abuse. ALLERGIES THE PATIENT HAS ALLERGIES IS ZOLPIDEM AND AMBIEN. MEDICATIONS Included: 1. Lipitor 40 milligrams p.o. q. h.s. 2. Norvasc 10 milligrams p.o. q. day. 3. Plavix 75 milligrams q. day. 4. Toprol XL 100 milligrams daily. 5. Klonopin 1 milligram t.i.d. REVIEW OF SYSTEMS The review of systems is negative except as stated in HPI. PHYSICAL EXAMINATION GENERAL: Physical exam reveals an obese male in no acute distress who is a lying on his side. VITAL SIGNS: BP 151/70, pulse 68, respirations 20, temperature 97.7, 94% sat on room air. HEENT: Sclerae anicteric. Pupils are reactive. CHEST: Clear to auscultation. ABDOMEN: Soft and nontender. BACK: On the left upper back the patient has an open wound that is approximately 4 x 10 cm in size. There is no purulence present but some fatty tissue is necrotic at the base of the wound. A second wound on the right mid to upper back is healed. There is no erythema around this. There is no erythema around the left upper back lesion. EXTREMITIES: Pulses are present. NEUROLOGIC: Exam is nonfocal. LABORATORY FINDINGS WBCs are 8.3, platelets 124,000. Chemistries are abnormal with a BUN of 26, creatinine of 2.02, glucose is elevated at 123. The patient had undergone myocardial perfusion scan on August 21 which demonstrates a moderate severity inferior and apical perfusion abnormality without evidence of redistribution. The patient had culture of his back wound which demonstrates a gram-negative aaliyah with cultures pending. MEDICATIONS The patient is currently on since admission includes: 1. Percocet 05/19 one p.o. q. 4 hours. 2. Pantoprazole 20 milligrams p.o. q. day. 3. Morphine 2 milligrams q. 3 hours as needed. 4. Piperacillin/tazobactam and clindamycin q. 6 hours. ASSESSMENT Open back wound, not causing sepsis. PLAN B.i.d. wet-to-dry dressing changes to wound for now. It does not appear that he will need any debridement. We will follow with you. Thank you for this consult. MD MARY Henderson/NATALIA /11:13 PM /11:37 PM
[2016-08-24 00:09] VITALS: BP 136/63; PULSE 56; RESP 20; TEMP 96.4; O2SAT 95
[2016-08-24] MEDS: oxyCODONE/ACETAMINOPHEN 10 MG/325 MG TAB PO PRN ×4 (00:23→15:30)
[2016-08-24] MEDS: NITROGLYCERIN 2% OINT 1 GM PACKET TOP SCH ×3 (00:23→12:00)
[2016-08-24] MEDS: CLINDAMYCIN INJ 600 MG in SODIUM CHLORIDE 0.9% INJ 100 ML IV SCH ×3 (03:00→15:29)
[2016-08-24 04:29] VITALS: BP 104/55; PULSE 62; RESP 20; TEMP 97.3; O2SAT 96
[2016-08-24] MEDS: PIPERACIL-TAZO 3.375 GM PREMIX 50 ML IV SCH ×2 (05:09→10:30)
[2016-08-24] MEDS: hydrALAZINE HCL 50 MG TAB PO SCH ×2 (05:58→15:29)
[2016-08-24] MEDS: RESP: ALBUTEROL 2.5 MG/IPRATROPIUM 0.5 MG NEB (SCH) NEB ×3 (08:43→15:22)
[2016-08-24 08:46] VITALS: O2SAT 97
[2016-08-24 09:19] VITALS: BP 145/69; PULSE 72; RESP 16; TEMP 98; O2SAT 95
--- NOTE | 2016-08-24 09:26 | HHI.PR ---
Subjective Subjective Remarks C/O back pain, unable to turn in bed, has shackles per officer at [facility], pt. not allowed to sit up in chair, states it's their rules feels "puffy" some wheezing no cough no fever BP better Review of Systems Constitutional Constitutional Remarks 12 point ROS completed, negative except as noted above Psychiatric Psychiatric: Normal Mood Vitals/Results Intake & Output 08/23/16 08/23/16 08/24/16 15:00 23:00 07:00 Intake Total 2000 ml Output Total 950 ml 300 ml Balance 1050 ml -300 ml Intake Oral 1200 ml IV Total 800 ml Output Urine Total 950 ml 300 ml Stool Total 0 ml Vital Signs Vital Signs Date Time Temp Pulse Resp B/P Pulse Ox O2 Delivery O2 Flow Rate FiO2 08/24/16 08:46 97 08/24/16 04:29 97.3 62 20 104/55 96 08/24/16 00:09 96.4 56 20 136/63 95 08/23/16 19:26 97.7 68 20 151/70 94 08/23/16 19:03 20 08/23/16 16:51 97.9 94 18 142/68 95 08/23/16 12:23 97.7 66 20 136/74 96 CBC/BMP: 08/23/16 0904 08/23/16 0904 Physical Exam General General Appearance: Well Developed, Obese Eyes Eye Exam: Pupils Equal, Pupils Reactive Ears & Nose Ears & Nose Exam: Nasal Mucosa [place] Throat Throat Exam: Oral Mucosa [place] & Moist Neck Neck Exam: Neck Supple Pulmonary Resp Exam: Diminished Breath Sounds Resp Remarks wheezes Gastrointestinal/Abdomen GI Exam: Soft, Non-Tender, Bowel Sounds Present, Non-Distended Musculoskeletal MS Exam: Normal Tone, Good Strength Integumentary Skin Exam: Clear, Warm, Dry Skin Remarks left post shoulder blade with dressing D/I Extremeties Extremities Exam: Pedal Pulses Palpable, Trace Edema Neurologic Neuro Exam: Alert, Awake, Oriented, Speech Clear, Moving All Extremities, Accounts Receivable Representative Equal Psychiatric Psych Exam: Appropriate Responses VTE Prophylaxis VTE Prophylaxis Device: SCDs VTE Prophylaxis Meds: Heparin PUD Prophylasis PUD Prophylaxis: Protonix Assessment/Plan Problem List: (1) Chest pain (2) Open back wound (3) COPD (chronic obstructive pulmonary disease) (4) Hypertension (5) Acute kidney injury (6) CAD (coronary artery disease) (7) Asthma Assessment/Plan 61-year-old male with past medical history of CAD, HTN, HLD, CVA, and recent sebaceous cyst removal who presented to the ED for chest pain. Chest pain with history of CAD: Evaluated by cardiology and the chest pain center and stress test was performed which showed no acute ischemia. Cleared from cardiology perspective. Continue Plavix, statin, beta rojas. Back wound dehiscence/necrosis s/p recent sebaceous cyst removal: Afebrile, no leukocytosis, however had foul smelling yellow drainage with necrosis and some surrounding erythema. Wound culture GNR, sens. pending. Continue abx for now. Plastics recommended gen surgery. Dr. Kim evaluated, no surgical debridement recommended, wet to dry dressing changes BID for now Continue with [place] prn pain and IV morphine prn breakthrough. Acute kidney injury: Unclear etiology, unknown baseline. Creatinine 2.03, previously 1.1 on 05/18/03. BUN 28. Creat stable, will do renal US to establish baseline. Avoid nephrotoxic agents, diuretics, hold Lisinopril Hx of Asthma, prob. COPD, mild exacerbation-continue Duonebs q 6 Hypertension: Not well controlled. Holding lisinopril for now with JULIO. Amlodipine started in [facility]. Clonidine as needed. Hydralazine 50 mg q8h. Continue to monitor BP, adjust antihypertensives as needed. Overall improving DVT prophylaxis SCDs, add Heparin. Protonix for PUD prophylaxis Pt. unable to turn in bed due to bilat ankle shackles, enc. to shift hips frequently to prevent pressure areas. D/W officer at [facility], requested that pt. sit up in chair. States pt. not allowed to get out of bed due to their rules/regulations Will f/u on wound culture and wait for sens. to deescalate abx therapy and discharge to [facility] D/W RN D/W Dr. Toledo D/W pt, KAMRAN This pt was seen by myself and Dr. Toledo, this note is written on his behalf. Problem Qualifiers (1) Chest pain: Qualified Code: R07.9 - Chest pain, unspecified type (2) Open back wound: Qualified Code: S21.209A - Open back wound, unspecified laterality, initial encounter (3) COPD (chronic obstructive pulmonary disease): Qualified Code: J44.9 - Chronic obstructive pulmonary disease, unspecified COPD type (4) Hypertension: Qualified Code: I10 - Essential hypertension (5) CAD (coronary artery disease): Qualified Code: I25.10 - Coronary artery disease involving [place] coronary artery of [place] heart without angina pectoris (6) Asthma: Qualified Code: J45.909 - Uncomplicated asthma, unspecified asthma severity Sheyla Vega Aug 24, 2016 09:26
[2016-08-24] MEDS ORDERED: HEPARIN SODIUM - SQ 10,000 UNITS/ML VIAL SQ SCH (10:00)
[2016-08-24] MEDS: CLOPIDOGREL 75 MG TAB PO SCH (10:30)
[2016-08-24] MEDS: clonazePAM 1 MG TAB PO SCH ×2 (10:31→15:30)
[2016-08-24] MEDS: PANTOPRAZOLE SOD 20 MG DELAYED RELEASE TAB PO SCH (10:31)
[2016-08-24] MEDS: METOPROLOL SUCCINATE 50 MG EXTENDED RELEASE TAB PO SCH (10:32)
[2016-08-24] MEDS: SODIUM CHLORIDE 0.9% FLUSH 5 ML FLUSH IVF SCH (10:32)
[2016-08-24 12:00] VITALS: BP 147/82; PULSE 78; RESP 18; TEMP 97.6; O2SAT 99
--- NOTE | 2016-08-24 12:57 | RADRPT ---
EXAM DATE/TIME: 08/24/2016 10:54 [place] COMPARISON: No previous studies available for comparison. INDICATIONS : Increased BUN/Creatinine. MEDICAL HISTORY : Myocardial infarction. Hypertension. Stroke. Right sided weakness. Asthma. SURGICAL HISTORY : CABG. Cardiac stents. ENCOUNTER: Initial ACUITY: 1 day PAIN SCORE: 0/10 LOCATION: Bilateral flank MEASUREMENTS: RIGHT KIDNEY: 10.6 x 5.9 x 6.1 cm LEFT KIDNEY: 11.9 x 6.1 x 5.9 cm FINDINGS: Multiple small bilateral renal cysts noted, measuring up to 7 mm on the right and 3.9 cm, 2.3 cm and 2.2 cm on the left. No hydronephrosis. No perinephric fluid. Bladder not fully distended. CONCLUSION: Small bilateral renal cysts. No hydronephrosis. Bladder not distended. Cali Bernard MD on August 24, 2016 at 12:53 Board Certified Radiologist. This report was verified electronically.
[2016-08-24 14:23] VITALS: PULSE 63
[2016-08-24] MEDS ORDERED: CEFT250T8 PO (14:57)
[2016-08-24] MEDS ORDERED: LEVA250T PO (14:57)
[2016-08-24] MEDS ORDERED: AMLO10 PO (14:57)
--- NOTE | 2016-08-24 14:58 | HHI.DCPOC ---
Discharge Care Plan Diagnosis: (1) Chest pain (2) Open back wound (3) COPD (chronic obstructive pulmonary disease) (4) Hypertension (5) Acute kidney injury (6) CAD (coronary artery disease) (7) Asthma Your Health Problems Are: Skin Breakdown Chest Pain Shortness of Breath Goals to Promote Your Health * To prevent worsening of your condition and complications * To maintain your health at the optimal level Directions to Meet Your Goals Take your medications as prescribed Follow your dietary instruction Follow activity as directed Keep your appointments as scheduled Take your immunizations and boosters as scheduled If your symptoms worsen call your PCP, if no PCP go to Urgent Care Center or Emergency Room Smoking is Dangerous to Your Health. Avoid second hand smoke Call the 24-hour hour crisis hotline for domestic abuse at Sheyla Vega [facility] Aug 24, 2016 14:58
--- NOTE | 2016-08-24 15:00 | HHI.DS ---
Discharge Summary Admission Date Aug 20, 2016 at 19:12 Discharge Date: Aug 24, 2016 Admitting Diagnosis chest pain (1) Chest pain (2) Open back wound (3) COPD (chronic obstructive pulmonary disease) (4) Hypertension (5) Acute kidney injury (6) CAD (coronary artery disease) (7) Asthma CBC/BMP: 08/23/16 0904 08/23/16 0904 Significant Findings Laboratory Tests Test 08/22/16 08/22/16 08/23/16 01:47 06:25 09:04 Urine Mucus FEW /lpf (OCC) Red Blood Count 4.27 MIL/MM3 4.27 MIL/MM3 (4.50-5.90) (4.50-5.90) Hematocrit 38.8 % 38.3 % (39.0-51.0) (39.0-51.0) Platelet Count 119 TH/MM3 124 TH/MM3 (150-450) (150-450) Neutrophils (%) (Auto) 72.2 % 75.3 % (16.0-70.0) (16.0-70.0) Monocytes (%) (Auto) 8.6 % (0.0-8.0) Chloride Level 112 MEQ/L 110 MEQ/L (98-107) (98-107) Blood Urea Nitrogen 26 MG/DL (7-18) 26 MG/DL (7-18) Creatinine 1.88 MG/DL 2.02 MG/DL (0.60-1.30) (0.60-1.30) Estimat Glomerular Filtration 37 ML/MIN (>89) 34 ML/MIN (>89) Rate Random Glucose 127 MG/DL 123 MG/DL (74-106) (74-106) Imaging Last Impressions Renal Ultrasound 08/24/16 0000 Signed Impressions: Service Date/Time: Wednesday, August 24, 2016 10:54 - CONCLUSION: Small bilateral renal cysts. No hydronephrosis. Bladder not distended. Cali Bernard MD Myocardial Perfusion Scan Nuc Med 08/21/16 0000 Signed Impressions: Service Date/Time: Sunday, August 21, 2016 09:29 - CONCLUSION: Small sized moderate severity inferior and apical perfusion abnormality without evidence of redistribution. RISK CATEGORY: Low (<1%% Annual Mortality Rate) Antonino Guerra MD Chest X-Ray 08/20/16 1626 Signed Impressions: Service Date/Time: Saturday, August 20, 2016 16:36 - CONCLUSION: No evidence of acute cardiac pulmonary disease. Antonino Sánchez MD Hospital Course This is 61-year-old male with history of CAD with a bypass history as well as multiple stents to his LAD who presents with his primary complaint of pain in his back after having a sebaceous cyst removed from his back over 2-1/2 weeks ago in [place]. He states he had sutures removed in [place] several days ago and the wound opened up. He went to a different hospital a couple days ago and had packing put in. He presented to the ED yesterday afternoon for a lot of drainage from the site. He stated he is soaking the dressing. He stated it has been foul-smelling. It has been bloody, brown, green and yellow drainage from the wound. He also complained of chest discomfort. He stated he had an episode yesterday morning around 8 o'clock in the morning that he described as an elephant sitting on his chest and is still there. It got a little worse when he was at the [facility] yesterday with his son. It is on the left side of his chest. He stated that it felt similar to when he had stenting and bypass in the past. He had no shortness breath, nausea, diaphoresis with his symptoms. He stated that he was placed on Keflex for the wound at one of the ER visits. He stated he has not taken it. He stated he is compliant with his cardiac medications. Pt. initially admitted to chest pain center and diagnosed with: (1) Chest pain (2) Open back wound (3) COPD (chronic obstructive pulmonary disease) (4) Hypertension (5) Acute kidney injury (6) CAD (coronary artery disease) (7) Asthma During course of the hospitalization: 61-year-old male with past medical history of CAD, HTN, HLD, CVA, and recent sebaceous cyst removal who presented to the ED for chest pain. Of note, pt. was a [facility], recently arrested. Therefore guard was present during hospitalization. Chest pain with history of CAD: Evaluated by cardiology and the chest pain center and stress test was performed which showed no acute ischemia. Cleared from cardiology perspective. Continued on Plavix, statin, beta rojas. Back wound dehiscence/necrosis s/p recent sebaceous cyst removal: Afebrile, no leukocytosis, however had foul smelling yellow drainage with necrosis and some surrounding erythema. Wound culture done. Put on antibiotics. Wound care consult, recommendations for wound care given and to consult wound care MD. Plastics recommended gen surgery. Dr. Kim evaluated, no surgical debridement recommended, wet to dry dressing changes BID GNR,Pseudomona leutola. Put on [place] prn pain and IV morphine prn breakthrough. Acute kidney injury: Unclear etiology, unknown baseline. Creatinine 2.03, previously 1.1 on 05/18/03. BUN 28. Creat stable. Renal US done, no obstruction. Avoid nephrotoxic agents, diuretics, held Lisinopril. Recommended follow up BMP at correctional facility. Hx of Asthma, prob. COPD, mild exacerbation-Put on Duonebs q 6 Hypertension: Not well controlled. Holding lisinopril for now with JULIO. Amlodipine started in [facility]. Clonidine as needed. Hydralazine 50 mg q8h while in hospital. Continue to monitor BP, adjust antihypertensives as needed. Improved. DVT prophylaxis SCDs and Heparin. Protonix for PUD prophylaxis Pt. unable to turn in bed due to bilat ankle shackles, enc. to shift hips frequently to prevent pressure areas. D/W officer at [facility], requested that pt. sit up in chair. States pt. not allowed to get out of bed due to their rules/regulations. Skin monitored per nursing Pt. stable, no fever, no cp, no sob Stable for discharge back to [facility]. Recommended to continue dressing changes as ordered, put on PO antibiotics, repeat BMP at facility to monitor renal function. Pt Condition on Discharge: Stable Discharge Disposition: Dis to [employer] Discharge Instructions DIET: Follow Instructions for: Heart Healthy Diet Activities you can perform: Weight Bearing as Deyanira Follow up Referrals: PCP Follow-up New Medications: Cefuroxime (Ceftin) 250 Mg Tab 250 MG PO BID Infection #28 Ref 0 TAB Levofloxacin (Levaquin) 250 Mg Tab 250 MG PO DAILY Infection #14 Ref 0 TAB Amlodipine (Norvasc) 10 Mg Tab 10 MG PO DAILY Blood Pressure Management Days 30 Ref 1 TAB Continued Medications: Atorvastatin (Lipitor) 40 Mg Tab 40 MG PO HS Cholesterol Management #30 Ref 0 TAB Clonazepam (Klonopin) 1 Mg Tab 1 MG PO TID #90 Ref 0 TAB Clopidogrel (Plavix) 75 Mg Tab 75 MG PO DAILY Blood Clot Prevention #30 Ref 0 TAB Metoprolol Succinate ER 24 HR (Toprol XL) 100 Mg Tab 100 MG PO DAILY #30 Ref 0 TAB [place]-3 Fatty Acids (Fish Oil) 1,000 Mg Cap 1000 MG PO DAILY Discontinued Medications: Lisinopril (Lisinopril) 20 Mg Tab 20 MG PO DAILY #30 Ref 0 TAB Sheyla Vega Aug 24, 2016 15:00
== END 2016-08-24 17:41 | DRG 920 ==
LOC: NEPE 15:58 → NEDA 19:12 → OBSVTOIN 19:12 → NEPHCDU 20:32
PROVIDERS: ADMIT Specialist; ATTEND Specialist
DX: T81.32XA Disruption of internal operation (surgical) wound, not elsewhere classified, initial encounter (principal); N17.9 Acute kidney failure, unspecified; L03.312 Cellulitis of back [any part except buttock and flank]; I10 Essential (primary) hypertension; R07.9 Chest pain, unspecified; I25.2 Old myocardial infarction; I25.10 Atherosclerotic heart disease of native coronary artery without angina pectoris; J45.909 Unspecified asthma, uncomplicated; E78.5 Hyperlipidemia, unspecified; J44.9 Chronic obstructive pulmonary disease, unspecified; F32.9 Major depressive disorder, single episode, unspecified; F41.9 Anxiety disorder, unspecified; Z86.711 Personal history of pulmonary embolism; Z86.73 Personal history of transient ischemic attack (TIA), and cerebral infarction without residual deficits; Z87.891 Personal history of nicotine dependence; Z95.1 Presence of aortocoronary bypass graft; Z95.5 Presence of coronary angioplasty implant and graft
CPT/HCPCS: 71010; 76775; 78452; 80048; 81001; 82550; 83735; 84484; 85025; 85379; 85610; 85730; 87070; 87077; 87186; 87205; 93005; 93017; 94640; 94664; 96374; 96375; A9502; J1644; J1885; J2270; J2405; J2543; J2785; J7030